=== PATIENT | female | born 1945 | race Hispanic/Latino ===

== ENCOUNTER 2021-10-14 07:38 | Day surgery (SDC) | payer MEDICARE ==
[2021-10-12 11:30] LABS: BASOPHILS % (AUTO) 0.2 % (0.0-5.0); HEMATOCRIT 32.1 % (36-48); LYMPHOCYTES % (AUTO) 11.2 % (21.0-51.0); MEAN CORPUSCULAR HEMOGLOBIN 26.5 pg (27.0-33.0); MEAN CORPUSCULAR HGB CONC 31.2 g/dL (32.0-36.0); MEAN CORPUSCULAR VOLUME 84.9 fL (79-99); MONOCYTES % (AUTO) 2.7 % (3.0-13.0); PLATELET COUNT (AUTO) 241 K/uL (130-400); RED BLOOD CELL COUNT(AUTO) 3.78 MIL/uL (4.00-5.50); RED CELL DISTRIBUTION WIDTH 15.5 % (11.0-15.5); WHITE BLOOD COUNT (AUTO) 8.8 K/uL (4.8-10.8)
[2021-10-12 11:43] LABS: INR 0.94 (0.85-1.15); PROTHROMBIN TIME 10.3 SEC (9.6-11.6)
[2021-10-12 11:44] LABS: ALBUMIN 3.2 g/dL (3.5-5.0); BILIRUBIN,TOTAL 0.4 mg/dL (0.2-1.0); CREATININE 3.4 mg/dL (0.5-1.5); POTASSIUM 5.1 mmol/L (3.5-5.1); TOTAL PROTEIN, SERUM 7.1 g/dL (6.0-8.3)
[~2021-10-14] VITALS: Ht 147.3 cm; Wt 88.4 kg
[2021-10-14] VITALS (11 sets, daily range): BP systolic 146–165; BP diastolic 54–75
[~2021-10-14 07:38] MED LIST: ALBU8.5H8 IH; AMLO-258 PO; ASPI-1443 PO; ATOR40TA71 PO; CEFAZOLIN SODIUM 1 GM VIAL IVP SCH; CEFU500T67 PO; FERR-82 PO; FOLI0.8T22 PO; FURO20TA4 PO; HYDR-4154 PO; INSU100V12 SQ; METO-409 PO; PRED10TA23 PO; SITA25TA5 PO; SODI650T PO
[2021-10-14] MEDS ORDERED: 0.9%NACL 1000ML 1,000 ML IV ONE (07:58)
[2021-10-14] MEDS: IPRATROPIUM/ALBUTEROL SULFATE 3 ML SOLUTION IH SCH ×2 (10:24→10:33)
[2021-10-14] MEDS ORDERED: IPRATROPIUM/ALBUTEROL SULFATE 3 ML SOLUTION IH ONE (10:29)
[2021-10-14] MEDS ORDERED: DEXTROSE 50%-WATER 50 ML DISP.SYRIN IV ONE (12:19)
[2021-10-14] MEDS ORDERED: LIDOCAINE PF 100MG/5ML (2%) SYRINGE 5ML ONE (13:11)
[2021-10-14] MEDS ORDERED: SUCCINYLCHOLINE CHLORIDE 20 MG/ML 10 ML VIAL ONE (13:11)
[2021-10-14] MEDS ORDERED: NEOSTIGMINE 5MG/5ML SYR IV ONE (13:12)
[2021-10-14] MEDS ORDERED: ONDANSETRON 4MG INJ ONE (13:12)
[2021-10-14] MEDS ORDERED: MIDAZOLAM HCL 1 MG/ML 2ML VIAL ONE (13:12)
[2021-10-14] MEDS ORDERED: DEXAMETHASONE SOD PHOSPHATE 10MG/ML 1ML VIAL ONE (13:12)
[2021-10-14] MEDS ORDERED: ROCURONIUM 10MG/1ML SYR 10 MG/ML ML ONE (13:12)
[2021-10-14] MEDS ORDERED: PROPOFOL 10 MG/ML 20ML VIAL IV ONE (13:12)
[2021-10-14] MEDS ORDERED: GLYCOPYRROLATE 1 MG/5 ML SYRINGE ONE (13:12)
[2021-10-14] MEDS ORDERED: FENTANYL CITRATE PF 50 MCG/1 ML 2ML VIAL ONE (13:13)
[2021-10-14] MEDS ORDERED: CEFAZOLIN SODIUM 2 GM VIAL IV ONE (13:23)
[2021-10-14] MEDS ORDERED: LIDOCAINE 1%-EPI 1:100,000 20 ML VIAL IJ ONE (13:46)
[2021-10-14] MEDS ORDERED: LIDOCAINE 1%-EPI 1:100,000 20 ML VIAL IJ SCH (14:30)
[2021-10-14] MEDS ORDERED: MEPERIDINE-PF 25 MG/ML SYG ONE (15:47)
== END 2021-10-14 17:00 | disposition home or self-care (01) ==
LOC: DAH 07:38
PROVIDERS: ATTEND Otolaryngology Plastic Surgery within the Head & Neck
DX: C44.311 Basal cell carcinoma of skin of nose (principal); Z20.822 Contact with and (suspected) exposure to COVID-19; C44.01 Basal cell carcinoma of skin of lip; C44.319 Basal cell carcinoma of skin of other parts of face; M19.90 Unspecified osteoarthritis, unspecified site; E78.5 Hyperlipidemia, unspecified; E11.9 Type 2 diabetes mellitus without complications; E66.9 Obesity, unspecified; I45.10 Unspecified right bundle-branch block; I49.1 Atrial premature depolarization; Z79.899 Other long term (current) drug therapy; Z79.01 Long term (current) use of anticoagulants; Z79.82 Long term (current) use of aspirin; Z98.890 Other specified postprocedural states; Z83.3 Family history of diabetes mellitus; Z82.49 Family history of ischemic heart disease and other diseases of the circulatory system; Z90.49 Acquired absence of other specified parts of digestive tract; Z98.891 History of uterine scar from previous surgery; Z68.31 Body mass index [BMI] 31.0-31.9, adult
CPT/HCPCS: 36415; 71045; 80053; 82948; 85025; 85610; 87635; 93005; 94640; 94664; A4606; C9803; J0330; J0690; J1100; J2001; J2175; J2250; J2405; J2704; J2710; J3010; J3490; J7030; J7070

== ENCOUNTER 2021-10-16 11:56 | Inpatient (IN) | payer MEDICARE ==
[~2021-10-16] VITALS: Ht 147.3 cm; Wt 90.9 kg
[~2021-10-16 11:56] MED LIST changes: -CEFAZOLIN SODIUM 1 GM VIAL IVP SCH
[2021-10-16 12:41] LABS: APPEARANCE,URINE Cloudy (CLEAR); BILIRUBIN,URINE Negative (NEGATIVE); COLOR,URINE Yellow (YELLOW); GLUCOSE, URINE (UA) Negative (NEGATIVE); KETONES,URINE Negative (NEGATIVE); LEUKOCYTE ESTERASE ,URINE Negative (NEGATIVE); NITRATE,URINE Negative (NEGATIVE); OCCULT BLOOD,URINE Negative (NEGATIVE); PROTEIN,URINE 300 mg/dL (NEGATIVE); UROBILINOGEN,URINE 0.2 mg/dL (0.2-1.0)
[2021-10-16] MEDS ORDERED: LACTULOSE 20 GM/30 ML UDCUP PR SCH (13:00)
[2021-10-16] MEDS ORDERED: MAGNESIUM CITRATE 296 ML SOLUTION PO ONE (13:00)
[2021-10-16 13:13] LABS: HEMATOCRIT 35.4 % (36-48); MEAN CORPUSCULAR HEMOGLOBIN 26.2 pg (27.0-33.0); MEAN CORPUSCULAR HGB CONC 29.9 g/dL (32.0-36.0); MEAN CORPUSCULAR VOLUME 87.6 fL (79-99); PLATELET COUNT (AUTO) 291 K/uL (130-400); RED BLOOD CELL COUNT(AUTO) 4.04 MIL/uL (4.00-5.50); RED CELL DISTRIBUTION WIDTH 15.9 % (11.0-15.5); WHITE BLOOD COUNT (AUTO) 22.2 K/uL (4.8-10.8)
[2021-10-16 13:19] LABS: BACTERIA,URINE Rare /HPF (None Seen); RBC,URINE 0-1 /HPF (0-1); SQUAMOUS EPITHELIAL CELL,UR Rare /HPF (0-2); WBC,URINE 0-1 /HPF (0-1)
[2021-10-16 13:28] LABS: ALANINE AMINOTRANSFERASE 18 U/L (12-78); ALBUMIN 2.8 g/dL (3.5-5.0); ASPARTATE AMINOTRANSFERASE 17 U/L (10-37); BILIRUBIN,TOTAL 0.3 mg/dL (0.2-1.0); CARBON DIOXIDE 18 mmol/L (21-32); CHLORIDE 107 mmol/L (101-111); CREATININE 3.5 mg/dL (0.5-1.5); GLOMERULAR FILTR. RATE CALC 14 mL/min (>60); GLUCOSE,RANDOM 147 mg/dL (70-105); LIPASE 210 U/L (114-286); POTASSIUM 4.5 mmol/L (3.5-5.1); SODIUM SERUM 136 mmol/L (136-145); TOTAL PROTEIN, SERUM 6.1 g/dL (6.0-8.3)
[2021-10-16 13:31] LABS: UREA NITROGEN, BLOOD 75 mg/dL (7-18)
[2021-10-16 13:34] LABS: CRP QUANTITATIVE < 2.00 mg/L (0.00-9.0)
[2021-10-16] MEDS ORDERED: 0.9%NACL 1000ML 1,000 ML IV ONE (14:00)
[2021-10-16 14:12] LABS: LYMPHOCYTES % (MANUAL) 12 % (22-44); MONOCYTES % (MANUAL) 3 % (2-9); SEGMENTED NEUTROPHILS % 85 % (40-70)
[2021-10-16 14:13] LABS: MAN.DIFF COMMENT-IMPRESSION MANUAL DIFFERENTIAL; PLATELET MORPHOLOGY COMMENT ADEQUATE
[2021-10-16] MEDS ORDERED: METRONIDAZOLE 500 MG TABLET PO SCH (14:30)
[2021-10-16] MEDS ORDERED: LEVOFLOXACIN 500 MG/D5W 100 ML 100 ML IV SCH (14:30)
[2021-10-16] MEDS ORDERED: LEVOFLOXACIN 500 MG TABLET PO SCH (14:30)
[2021-10-16] MEDS ORDERED: ONDANSETRON 4MG INJ IVP ONE ×2 (14:30)
[2021-10-16] MEDS ORDERED: LACTULOSE 20 GM/30 ML UDCUP PO ONE (14:50)
[2021-10-16] MEDS ORDERED: METRONIDAZOLE 500MG/100ML BAG 100 ML ONE (17:06)
[2021-10-16] MEDS ORDERED: ENOXAPARIN SODIUM 40 MG/0.4 ML SYRINGE SQ ONE (17:30)
[2021-10-16] MEDS ORDERED: METRONIDAZOLE 250MG/50ML 50 ML IV SCH (18:00)
[2021-10-16] MEDS ORDERED: COMPOUND IV MISC 1 EACH IVSOLN MISC PRN (18:00)
[2021-10-16] MEDS: 1/2 NS 1000ML 1,000 ML IV SCH (19:13)
[2021-10-16] MEDS: ACETAMINOPHEN 325 MG TAB PO PRN (20:54)
[2021-10-16] MEDS ORDERED: METRONIDAZOLE 500MG/100ML BAG 100 ML IVPB SCH (22:00)
[2021-10-16 22:21] VITALS: BP 159/74
[2021-10-16] MEDS: METRONIDAZOLE 250MG/50ML 50 ML IV SCH (23:08)
[2021-10-17] VITALS (7 sets, daily range): BP systolic 146–160; BP diastolic 66–77
[2021-10-17] MEDS: 1/2 NS 1000ML 1,000 ML IV SCH (01:30)
[2021-10-17 04:49] LABS: BASOPHILS % (AUTO) 0.2 % (0.0-5.0); EOSINOPHILS % (AUTO) 0.2 % (0.0-8.0); HEMATOCRIT 31.8 % (36-48); LYMPHOCYTES % (AUTO) 9.6 % (21.0-51.0); MEAN CORPUSCULAR HEMOGLOBIN 26.6 pg (27.0-33.0); MEAN CORPUSCULAR HGB CONC 30.5 g/dL (32.0-36.0); MEAN CORPUSCULAR VOLUME 87.4 fL (79-99); MONOCYTES % (AUTO) 4.9 % (3.0-13.0); NEUTROPHILS % (AUTO) 83.9 % (40.0-77.0); NUCLEATED RED BLOOD CELLS 0.6 % (0.0-0.19); PLATELET COUNT (AUTO) 228 K/uL (130-400); RED BLOOD CELL COUNT(AUTO) 3.64 MIL/uL (4.00-5.50); RED CELL DISTRIBUTION WIDTH 15.8 % (11.0-15.5)
[2021-10-17 04:54] LABS: CREATININE 3.2 mg/dL (0.5-1.5); POTASSIUM 4.8 mmol/L (3.5-5.1)
[2021-10-17 04:58] LABS: ALBUMIN 2.5 g/dL (3.5-5.0); BILIRUBIN,TOTAL 0.3 mg/dL (0.2-1.0); TOTAL PROTEIN, SERUM 5.4 g/dL (6.0-8.3)
[2021-10-17] MEDS: METRONIDAZOLE 250MG/50ML 50 ML IV SCH ×3 (06:00→17:46)
[2021-10-17] MEDS ORDERED: FUROSEMIDE 20 MG TABLET PO SCH (06:30)
[2021-10-17] MEDS: INSULIN HUMULIN R 100 UNIT/ML 3ML SQ SCH ×4 (07:30→20:52)
[2021-10-17] MEDS: HYDRALAZINE 25MG TABLET PO SCH ×2 (10:20→20:59)
[2021-10-17] MEDS: ASPIRIN 81 MG EC TAB PO SCH (10:21)
[2021-10-17] MEDS: CEFUROXIME AXETIL 250 MG TABLET PO SCH ×2 (10:22→20:59)
[2021-10-17] MEDS: METOPROLOL SUCCINATE 50 MG TAB.SR.24H PO SCH (10:23)
[2021-10-17] MEDS: PREDNISONE 10 MG TABLET PO SCH ×2 (10:23→20:59)
[2021-10-17] MEDS: FERROUS SULFATE 325 MG TABLET.DR PO SCH (10:23)
[2021-10-17] MEDS: AMLODIPINE 5 MG TAB PO SCH (10:23)
[2021-10-17] MEDS: Vitamin B Complex/Vit C/Folic Acid PO SCH (10:23)
[2021-10-17] MEDS: INSULIN GLARGINE 100 UNITS/ML 10 ML VIAL SQ SCH ×2 (10:25→21:03)
[2021-10-17] MEDS: SODIUM BICARBONATE 650 MG TAB PO SCH ×2 (10:32→16:12)
[2021-10-17] MEDS: LINAGLIPTIN 5 MG TABLET PO SCH (10:34)
[2021-10-17] MEDS ORDERED: PHARMACY COMMUNICATION MISC SCH (13:00)
[2021-10-17] MEDS: ATORVASTATIN 40 MG TABLET PO SCH (20:58)
[2021-10-17] MEDS: ACETAMINOPHEN 325 MG TAB PO PRN (21:01)
[2021-10-18] MEDS ORDERED: METRONIDAZOLE 500MG/100ML BAG 100 ML ONE ×2 (00:06→06:00)
[2021-10-18] MEDS: 1/2 NS 1000ML 1,000 ML IV SCH ×3 (00:17→17:30)
[2021-10-18 04:00] VITALS: BP 148/65
[2021-10-18] MEDS: METRONIDAZOLE 250MG/50ML 50 ML IV SCH ×4 (06:00→17:22)
[2021-10-18] MEDS: INSULIN HUMULIN R 100 UNIT/ML 3ML SQ SCH ×4 (06:04→21:27)
[2021-10-18 07:30] VITALS: BP 160/82
[2021-10-18] MEDS: INSULIN GLARGINE 100 UNITS/ML 10 ML VIAL SQ SCH ×2 (07:30→21:28)
[2021-10-18] MEDS: SODIUM BICARBONATE 650 MG TAB PO SCH ×2 (08:00→17:23)
[2021-10-18] MEDS: ASPIRIN 81 MG EC TAB PO SCH (09:00)
[2021-10-18] MEDS: Vitamin B Complex/Vit C/Folic Acid PO SCH (09:08)
[2021-10-18] MEDS: CEFUROXIME AXETIL 250 MG TABLET PO SCH ×2 (09:09→21:23)
[2021-10-18] MEDS: FERROUS SULFATE 325 MG TABLET.DR PO SCH (09:09)
[2021-10-18] MEDS: METOPROLOL SUCCINATE 50 MG TAB.SR.24H PO SCH (09:09)
[2021-10-18] MEDS: PREDNISONE 10 MG TABLET PO SCH ×2 (09:09→21:22)
[2021-10-18] MEDS: AMLODIPINE 5 MG TAB PO SCH (09:09)
[2021-10-18] MEDS: HYDRALAZINE 25MG TABLET PO SCH ×2 (09:09→21:00)
[2021-10-18] MEDS: LINAGLIPTIN 5 MG TABLET PO SCH (09:09)
[2021-10-18 11:30] VITALS: BP 167/61
[2021-10-18] MEDS ORDERED: COMPOUND PO MISCELLANEOUS 1 EACH MISC MISC PRN (12:30)
[2021-10-18 12:47] LABS: BASOPHILS % (AUTO) 0.1 % (0.0-5.0); HEMATOCRIT 33.1 % (36-48); LYMPHOCYTES % (AUTO) 4.7 % (21.0-51.0); MEAN CORPUSCULAR HEMOGLOBIN 26.8 pg (27.0-33.0); MEAN CORPUSCULAR HGB CONC 30.8 g/dL (32.0-36.0); MEAN CORPUSCULAR VOLUME 87.1 fL (79-99); MONOCYTES % (AUTO) 1.9 % (3.0-13.0); NEUTROPHILS % (AUTO) 92.4 % (40.0-77.0); NUCLEATED RED BLOOD CELLS 0.1 % (0.0-0.19); PLATELET COUNT (AUTO) 254 K/uL (130-400); RED CELL DISTRIBUTION WIDTH 16.2 % (11.0-15.5)
[2021-10-18 12:56] LABS: CREATININE 3.2 mg/dL (0.5-1.5); POTASSIUM 4.4 mmol/L (3.5-5.1)
[2021-10-18 13:01] LABS: ALBUMIN 2.6 g/dL (3.5-5.0); BILIRUBIN,TOTAL 0.4 mg/dL (0.2-1.0); TOTAL PROTEIN, SERUM 5.8 g/dL (6.0-8.3)
[2021-10-18] MEDS: VANCOMYCIN 250MG/5ML ORAL SOLUTION 40ML PO SCH ×4 (14:14→17:24)
[2021-10-18] MEDS: PHARMACY COMMUNICATION MISC SCH ×2 (14:20→15:45)
[2021-10-18 15:25] VITALS: BP 163/62
[2021-10-18] MEDS ORDERED: LEVOFLOXACIN 250 MG/D5W 50ML 50 ML IVPB SCH (15:30)
[2021-10-18] MEDS ORDERED: VANCOMYCIN 500MG VIAL PO SCH (18:00)
[2021-10-18 20:23] VITALS: BP 101/44
[2021-10-18] MEDS: ATORVASTATIN 40 MG TABLET PO SCH (21:22)
[2021-10-19] VITALS (7 sets, daily range): BP systolic 138–182; BP diastolic 47–75
[2021-10-19] MEDS: METRONIDAZOLE 250MG/50ML 50 ML IV SCH ×4 (00:05→18:32)
[2021-10-19] MEDS: HYDRALAZINE 25MG TABLET PO SCH ×3 (00:08→20:42)
[2021-10-19] MEDS: VANCOMYCIN 250MG/5ML ORAL SOLUTION 40ML PO SCH ×8 (00:15→18:32)
[2021-10-19] MEDS: 1/2 NS 1000ML 1,000 ML IV SCH ×3 (00:17→20:00)
[2021-10-19] MEDS: ONDANSETRON 4MG INJ IVP PRN ×2 (03:46→09:34)
[2021-10-19] MEDS: HYDROMORPHONE 0.5 MG SYG (0.5MG/0.5ML) IVP PRN ×5 (03:47→22:29)
[2021-10-19 05:01] LABS: HEMATOCRIT 30.5 % (36-48); MEAN CORPUSCULAR HEMOGLOBIN 26.1 pg (27.0-33.0); MEAN CORPUSCULAR HGB CONC 30.5 g/dL (32.0-36.0); MEAN CORPUSCULAR VOLUME 85.7 fL (79-99); RED BLOOD CELL COUNT(AUTO) 3.56 MIL/uL (4.00-5.50); RED CELL DISTRIBUTION WIDTH 16.2 % (11.0-15.5); WHITE BLOOD COUNT (AUTO) 13.1 K/uL (4.8-10.8)
[2021-10-19 05:31] LABS: ALBUMIN 2.4 g/dL (3.5-5.0); BILIRUBIN,TOTAL 0.4 mg/dL (0.2-1.0); CREATININE 3.1 mg/dL (0.5-1.5); POTASSIUM 4.4 mmol/L (3.5-5.1); TOTAL PROTEIN, SERUM 5.4 g/dL (6.0-8.3)
[2021-10-19] MEDS: INSULIN HUMULIN R 100 UNIT/ML 3ML SQ SCH ×4 (06:56→20:50)
[2021-10-19] MEDS: INSULIN GLARGINE 100 UNITS/ML 10 ML VIAL SQ SCH ×3 (07:23→20:48)
[2021-10-19] MEDS: LINAGLIPTIN 5 MG TABLET PO SCH (08:05)
[2021-10-19] MEDS: ASPIRIN 81 MG EC TAB PO SCH (08:05)
[2021-10-19] MEDS: SODIUM BICARBONATE 650 MG TAB PO SCH ×2 (08:05→16:41)
[2021-10-19] MEDS: Vitamin B Complex/Vit C/Folic Acid PO SCH (08:05)
[2021-10-19] MEDS: AMLODIPINE 5 MG TAB PO SCH (08:06)
[2021-10-19] MEDS: CEFUROXIME AXETIL 250 MG TABLET PO SCH ×2 (08:06→20:41)
[2021-10-19] MEDS: FUROSEMIDE 20 MG TABLET PO SCH (08:06)
[2021-10-19] MEDS: FERROUS SULFATE 325 MG TABLET.DR PO SCH (08:06)
[2021-10-19] MEDS: METOPROLOL SUCCINATE 50 MG TAB.SR.24H PO SCH (08:06)
[2021-10-19] MEDS: ACETAMINOPHEN 325 MG TAB PO PRN (16:42)
[2021-10-19] MEDS: ATORVASTATIN 40 MG TABLET PO SCH (20:41)
[2021-10-20 00:08] VITALS: BP 139/52
[2021-10-20] MEDS: VANCOMYCIN 250MG/5ML ORAL SOLUTION 40ML PO SCH ×4 (00:17→07:42)
[2021-10-20] MEDS: METRONIDAZOLE 250MG/50ML 50 ML IV SCH ×3 (00:18→12:41)
[2021-10-20 03:44] VITALS: BP 141/53
[2021-10-20 05:55] LABS: BASOPHILS % (AUTO) 0.1 % (0.0-5.0); EOSINOPHILS % (AUTO) 1.5 % (0.0-8.0); HEMATOCRIT 30.9 % (36-48); LYMPHOCYTES % (AUTO) 9.9 % (21.0-51.0); MEAN CORPUSCULAR HEMOGLOBIN 26.4 pg (27.0-33.0); MEAN CORPUSCULAR HGB CONC 30.7 g/dL (32.0-36.0); MEAN CORPUSCULAR VOLUME 85.8 fL (79-99); MONOCYTES % (AUTO) 7.1 % (3.0-13.0); NEUTROPHILS % (AUTO) 80.4 % (40.0-77.0); PLATELET COUNT (AUTO) 235 K/uL (130-400); RED CELL DISTRIBUTION WIDTH 16.4 % (11.0-15.5); WHITE BLOOD COUNT (AUTO) 11.6 K/uL (4.8-10.8)
[2021-10-20 06:27] LABS: CREATININE 3.4 mg/dL (0.5-1.5); POTASSIUM 3.6 mmol/L (3.5-5.1)
[2021-10-20] MEDS: INSULIN HUMULIN R 100 UNIT/ML 3ML SQ SCH ×2 (07:30→11:30)
[2021-10-20 08:00] VITALS: BP 134/50
[2021-10-20] MEDS: INSULIN GLARGINE 100 UNITS/ML 10 ML VIAL SQ SCH (08:12)
[2021-10-20] MEDS: AMLODIPINE 5 MG TAB PO SCH (08:46)
[2021-10-20] MEDS: SODIUM BICARBONATE 650 MG TAB PO SCH (08:46)
[2021-10-20] MEDS: FUROSEMIDE 20 MG TABLET PO SCH (08:46)
[2021-10-20] MEDS: METOPROLOL SUCCINATE 50 MG TAB.SR.24H PO SCH (08:46)
[2021-10-20] MEDS: LINAGLIPTIN 5 MG TABLET PO SCH (08:46)
[2021-10-20] MEDS: Vitamin B Complex/Vit C/Folic Acid PO SCH (08:46)
[2021-10-20] MEDS: ASPIRIN 81 MG EC TAB PO SCH (08:46)
[2021-10-20] MEDS: HYDRALAZINE 25MG TABLET PO SCH (08:47)
[2021-10-20] MEDS: FERROUS SULFATE 325 MG TABLET.DR PO SCH (08:47)
[2021-10-20] MEDS: CEFUROXIME AXETIL 250 MG TABLET PO SCH (08:47)
[2021-10-20] MEDS ORDERED: BACITRACIN 28.4 GM OINT TP SCH (13:00)
[2021-10-20] MEDS: ACETAMINOPHEN 325 MG TAB PO PRN (13:03)
== END 2021-10-20 16:45 | disposition home or self-care (01) | DRG 371 ==
LOC: EDH 11:56 → EDHIP 16:07 → 3DH 21:03
PROVIDERS: ADMIT Internal Medicine; ATTEND Internal Medicine
DX: A04.72 Enterocolitis due to Clostridium difficile, not specified as recurrent (principal); N17.0 Acute kidney failure with tubular necrosis; E11.9 Type 2 diabetes mellitus without complications; K57.90 Diverticulosis of intestine, part unspecified, without perforation or abscess without bleeding; E78.5 Hyperlipidemia, unspecified; I10 Essential (primary) hypertension; K59.00 Constipation, unspecified; E86.0 Dehydration; D64.9 Anemia, unspecified; Z85.828 Personal history of other malignant neoplasm of skin
CPT/HCPCS: 36415; 71045; 74176; 76770; 80048; 80053; 81001; 82948; 83605; 83630; 83690; 84484; 85025; 85027; 85610; 86140; 87040; 87046; 87177; 87324; 87635; 93005; 94640; 94664; A4606; C9803; G0378; J0330; J0690; J1100; J1170; J1650; J1956; J2001; J2175; J2250; J2405; J2704; J2710; J3010; J3370; J3490; J7030; J7070; J7512

== ENCOUNTER 2022-11-08 11:22 | Day surgery (SDC) | payer MEDICARE ==
[2022-11-04 12:18] LABS: HEMATOCRIT 35.6 % (36-48); MEAN CORPUSCULAR HEMOGLOBIN 28.6 pg (27.0-33.0); MEAN CORPUSCULAR HGB CONC 30.1 g/dL (32.0-36.0); MEAN CORPUSCULAR VOLUME 95.2 fL (79-99); NUCLEATED RED BLOOD CELLS 0.2 % (0.0-0.19); PLATELET COUNT (AUTO) 229 K/uL (130-400); RED BLOOD CELL COUNT(AUTO) 3.74 MIL/uL (4.00-5.50); RED CELL DISTRIBUTION WIDTH 17.2 % (11.0-15.5); WHITE BLOOD COUNT (AUTO) 8.7 K/uL (4.8-10.8)
[2022-11-04 12:30] VITALS: BP 199/73
[2022-11-04 12:31] LABS: INR 0.93 (0.85-1.15); PROTHROMBIN TIME 10.2 SEC (9.6-11.6)
[2022-11-04 12:34] LABS: CREATININE 5.5 mg/dL (0.5-1.5); POTASSIUM 3.4 mmol/L (3.5-5.1)
[~2022-11-08] VITALS: Ht 149.9 cm; Wt 77.3 kg
[2022-11-08] VITALS (25 sets, daily range): BP systolic 124–167; BP diastolic 56–68
[~2022-11-08 11:22] MED LIST changes: +ACET-2079 PO; -ALBU8.5H8 IH; -AMLO-258 PO; +CEFAZOLIN SODIUM 2 GM VIAL IVPB SCH; -CEFU500T67 PO; +CLON1PAT13 TD; -FERR-82 PO; -FOLI0.8T22 PO; +FOLI0.8T43 PO; -FURO20TA4 PO; -PRED10TA23 PO; -SITA25TA5 PO; -SODI650T PO; +TORS20TA4 PO
[2022-11-08] MEDS ORDERED: 0.9% NACL 500ML IV.SOLN 500 ML IV ONE (11:42)
[2022-11-08 12:01] LABS: CREATININE 3.8 mg/dL (0.5-1.5); POTASSIUM 3.6 mmol/L (3.5-5.1)
[2022-11-08] MEDS ORDERED: CEFAZOLIN SODIUM 1 GM VIAL ONE (13:45)
[2022-11-08] MEDS ORDERED: BUPIVACAINE/PF 0.5% 30ML VIAL ONE (13:45)
[2022-11-08] MEDS ORDERED: LIDOCAINE HCL 1% 20 ML VIAL ONE (13:45)
[2022-11-08] MEDS ORDERED: CEFAZOLIN SODIUM 2 GM VIAL IVPB ONE (13:55)
[2022-11-08] MEDS ORDERED: LIDOCAINE PF 100MG/5ML (2%) SYRINGE 5ML ONE (13:56)
[2022-11-08] MEDS ORDERED: ONDANSETRON 4MG INJ ONE (13:56)
[2022-11-08] MEDS ORDERED: DEXAMETHASONE SOD PHOSPHATE 10MG/ML 1ML VIAL ONE (13:56)
[2022-11-08] MEDS ORDERED: SUCCINYLCHOLINE CHLORIDE 20 MG/ML 10 ML VIAL ONE (13:56)
[2022-11-08] MEDS ORDERED: FENTANYL CITRATE PF 50 MCG/1 ML 2ML VIAL ONE ×2 (13:57→16:30)
[2022-11-08] MEDS ORDERED: GLYCOPYRROLATE 1 MG/5 ML SYRINGE ONE (13:57)
[2022-11-08] MEDS ORDERED: PROPOFOL 10 MG/ML 20ML VIAL IV ONE (13:57)
[2022-11-08] MEDS ORDERED: ROCURONIUM 10MG/1ML SYR 10 MG/ML ML ONE (13:57)
[2022-11-08] MEDS ORDERED: HYDRALAZINE 20MG/ML VIAL ONE (14:55)
[2022-11-08] MEDS ORDERED: MEPERIDINE-PF 25 MG/ML SYG ONE (15:01)
[2022-11-08] MEDS ORDERED: SUGAMMADEX SODIUM 200 MG/2 ML VIAL IV ONE (15:23)
== END 2022-11-08 17:40 | disposition home or self-care (01) ==
LOC: DAH 11:22
PROVIDERS: ATTEND Thoracic Surgery (Cardiothoracic Vascular Surgery)
DX: E11.22 Type 2 diabetes mellitus with diabetic chronic kidney disease (principal); Z20.822 Contact with and (suspected) exposure to COVID-19; I12.0 Hypertensive chronic kidney disease with stage 5 chronic kidney disease or end stage renal disease; N18.6 End stage renal disease; E78.5 Hyperlipidemia, unspecified; E66.01 Morbid (severe) obesity due to excess calories; J44.9 Chronic obstructive pulmonary disease, unspecified; D64.9 Anemia, unspecified; I45.10 Unspecified right bundle-branch block; Z98.890 Other specified postprocedural states; Z98.891 History of uterine scar from previous surgery; Z79.899 Other long term (current) drug therapy; Z90.49 Acquired absence of other specified parts of digestive tract; Z99.2 Dependence on renal dialysis
CPT/HCPCS: 80048 ×2; 85027; 85610; 85730; 86850 ×2; 86900 ×2; 86901 ×2; 87426; 36415 ×2; 71045; 93005; 36830; 82948 ×2; A6260; A4663; J7040; J3010 ×2; J0690 ×3; J3490 ×2; J1100; J0330; J2001; J0360; J2704; J2405; J2175; J1644; A6446; G0168; A4649 ×3; C1713 ×2; A4930; C1768; A4215; A4223; A4222; A4221

== ENCOUNTER → 2023-01-12 | Outpatient (CLI) | payer OTHER, MEDICARE ==
[~2023-01-12] MED LIST changes: -CEFAZOLIN SODIUM 2 GM VIAL IVPB SCH
[2023-01-12 12:20] LABS: ALBUMIN 3.4 g/dL (3.5-5.0); POTASSIUM 4.1 mmol/L (3.5-5.1); TOTAL PROTEIN, SERUM 7.1 g/dL (6.0-8.3)
== END | disposition home or self-care (01) ==
LOC: LAB 10:32
PROVIDERS: ATTEND Student in an Organized Health Care Education/Training Program
DX: R07.89 Other chest pain (principal)
CPT/HCPCS: 36415; 80053

== ENCOUNTER → 2023-01-17 | Outpatient (CLI) | payer OTHER, MEDICARE ==
[~2023-01-17] MED LIST changes: +IOHEXOL 350 MG/ML 100ML INFUS..BTL IV ONE; +METOPROLOL TARTRATE 1 MG/ML 5ML VIAL IV ONE
== END | disposition home or self-care (01) ==
LOC: RAH 07:53
PROVIDERS: ATTEND Student in an Organized Health Care Education/Training Program
DX: M47.815 Spondylosis without myelopathy or radiculopathy, thoracolumbar region (principal); R07.89 Other chest pain
CPT/HCPCS: 75574; J3490 ×2; Q9967

== ENCOUNTER → 2023-11-02 | Outpatient (CLI) | payer MEDICARE ==
[~2023-11-02] MED LIST changes: -HYDR-4154 PO; +HYDR50TA37 PO; -IOHEXOL 350 MG/ML 100ML INFUS..BTL IV ONE; -METOPROLOL TARTRATE 1 MG/ML 5ML VIAL IV ONE
== END | disposition home or self-care (01) ==
LOC: RAH 12:34
PROVIDERS: ATTEND Student in an Organized Health Care Education/Training Program
DX: I65.23 Occlusion and stenosis of bilateral carotid arteries (principal); I12.0 Hypertensive chronic kidney disease with stage 5 chronic kidney disease or end stage renal disease; N18.6 End stage renal disease; R42 Dizziness and giddiness; R55 Syncope and collapse; R07.89 Other chest pain; E78.5 Hyperlipidemia, unspecified
CPT/HCPCS: 93306; 93880